=== PATIENT | female | born 1945 | race Caucasian/White ===

== ENCOUNTER 2021-05-31 10:37 | Inpatient (IN) | payer OTHER, MEDICARE ==
[~2021-05-31] VITALS: Ht 160 cm; Wt 108.2 kg
[2021-05-31] MEDS ORDERED: HYDROCHLOROTH12.5 M1 PO (11:45)
[2021-05-31] MEDS ORDERED: ARICEPT10 MG PO (11:46)
[2021-05-31] MEDS ORDERED: SIMVASTATIN40 MG PO (11:46)
[2021-05-31] MEDS ORDERED: EUTHYROX200 MCG PO (11:47)
[2021-05-31] MEDS ORDERED: DRIZALMA SPRINK60 MG PO (11:47)
--- NOTE | 2021-05-31 14:28 | EKG ---
[facility] [address] [facility] [place], [place] [address] Signed Normal sinus rhythm with sinus arrhythmia Normal ECG No previous ECGs available Confirmed by SEA CHAMPAGNE MD ([id number] on 05/31/2021 2:28:21 PM Electronically Signed By: SEA CHAMPAGNE MD 05/31/21 1428 PATIENT NAME: MARU PATEL Electrocardiogram DATE OF : 41 PHYSICIAN: SEA CHAMPAGNE MD REPORT #: [id number] REPORT IS CONFIDENTIAL AND NOT TO BE RELEASED WITHOUT AUTHORIZATION
[2021-06-01] MEDS ORDERED: HYDROCHLOROTH12.5 MG PO (07:53)
[2021-06-01] MEDS ORDERED: DULOXETINE HCL60 MG PO (07:54)
[2021-06-01] MEDS ORDERED: ARMOUR THYROID180 MG PO (08:12)
[2021-06-01] MEDS ORDERED: POTASSIUM CHLO10 MEQ PO (08:14)
[2021-06-01] MEDS ORDERED: DAILY VALUE1 EACH PO (13:33)
[2021-06-01] MEDS ORDERED: VITAMIN D3125 MCG PO (13:34)
[2021-06-06] MEDS ORDERED: CEPHALEXIN500 MG PO (13:49)
[2021-06-06] MEDS ORDERED: AMLODIPINE BES2.5 MG PO (13:49)
[2021-06-06] MEDS ORDERED: GABAPENTIN100 MG PO (13:50)
[2021-06-06] MEDS ORDERED: OXYCODONE HCL5 MG PO (13:50)
[2021-06-06] MEDS ORDERED: ACETAMINOPHEN500 MG PO (13:50)
== END 2021-06-06 14:40 | disposition home or self-care (01) | DRG 543 ==
LOC: ED 10:37 → MS 21:21
PROVIDERS: ADMIT Internal Medicine; ATTEND Internal Medicine
DX: M80.08XA Age-related osteoporosis with current pathological fracture, vertebra(e), initial encounter for fracture (principal); S32.10XA Unspecified fracture of sacrum, initial encounter for closed fracture; N39.0 Urinary tract infection, site not specified; E87.6 Hypokalemia; I10 Essential (primary) hypertension; E03.9 Hypothyroidism, unspecified; B96.20 Unspecified Escherichia coli [E. coli] as the cause of diseases classified elsewhere; T50.1X5A Adverse effect of loop [high-ceiling] diuretics, initial encounter; Z20.822 Contact with and (suspected) exposure to COVID-19; Z66 Do not resuscitate; Z88.2 Allergy status to sulfonamides; Z88.0 Allergy status to penicillin; F03.90 Unspecified dementia, unspecified severity, without behavioral disturbance, psychotic disturbance, mood disturbance, and anxiety; Z79.899 Other long term (current) drug therapy; E05.90 Thyrotoxicosis, unspecified without thyrotoxic crisis or storm; Z90.49 Acquired absence of other specified parts of digestive tract; M45.6 Ankylosing spondylitis lumbar region; W01.10XA Fall on same level from slipping, tripping and stumbling with subsequent striking against unspecified object, initial encounter; E66.9 Obesity, unspecified; Z68.35 Body mass index [BMI] 35.0-35.9, adult
CPT/HCPCS: 51702; 71045; 72070; 72100; 72131; 80048; 80053; 81001; 83735; 84484; 85025; 87088; 87184; 93005; 93010; 97110; 97163; 97166; 97530; 97535; 99285-25; C9803; J0696; J1100; J1170; J2270; J3475; J3480; J7030; J7120; J7121; U0003